=== PATIENT | female | born 1995 | race American Indian/Alaskan Native ===

== ENCOUNTER 2018-04-26 02:20 | Emergency (ER) | payer OTHER ==
[2018-04-26] MEDS ORDERED: PEPCID IV ONE (02:41)
[2018-04-26] MEDS ORDERED: SOLU-Medrol IV ONE (02:41)
--- NOTE | 2018-04-26 04:53 | Emergency Department Report ---
ED Allergic Reaction HPI - General Chief complaint: Allergic Reaction Stated complaint: ALLERGIC REACTION Time Seen by Provider: 04/26/18 02:41 Source: EMS Mode of arrival: Stretcher Limitations: No Limitations - History of Present Illness Initial Comments: Aneta is a 22 yo female who is currently 6 weeks . She has had symptoms of allergic reaction last several days. Recently this week she was evaluated at outside hospital [facility] for allergic reaction. She is currently taking prednisone. Her mother recalls allergies to cats as a child. She recently moved into a new home April 19. The previous owners of the home had several cats. Today she had facial swelling and shortness of breath and wheezing. She received Benadryl IV and epinephrine subcutaneous per EMS. Symptoms are rapidly improving. Patient does have eczema. She does not recall allergies to food or pads. She recently moved from [place] with her parents into this new home which was purchased by the family. This is patient's second secondary to see. First ended in miscarriage. MD Complaint: allergic reaction, hives, facial swelling -: Gradual Symptoms: rash, itching, facial swelling, lip swelling, difficulty breathing, hoarseness Severity: moderate Treatment Prior to Arrival: benadryl, epinephrine, bronchodilator Previous Allergy History: prior ED visit(s) - Related Data Previous Rx's Medication Instructions Recorded Last Taken Type EPINEPHrine [Epipen] 0.3 mg IJ ONCE PRN #1 auto.injct 04/26/18 Unknown Rx Famotidine 20 mg PO BID 4 Days #8 tablet 04/26/18 Unknown Rx Prednisone [predniSONE 10 mg 10 mg PO .TAPER #1 tab.ds.pk 04/26/18 Unknown Rx (6-Day Pack, 21 Tabs)] diphenhydrAMINE [Benadryl CAP] 25 mg PO Q6HR 4 Days #16 capsule 04/26/18 Unknown Rx Allergies Allergy/AdvReac Type Severity Reaction Status Date / Time No Known Allergies Allergy Unverified 04/26/18 02:28 ED Review of Systems ROS: Stated complaint: ALLERGIC REACTION Other details as noted in HPI Comment: All other systems reviewed and negative Constitutional: denies: fever, malaise Respiratory: shortness of breath, wheezing Cardiovascular: denies: chest pain ED Past Medical Hx - Past Medical History Previous Medical History?: No - Surgical History Past Surgical History?: No - Social History Smoking Status: Never Smoker Substance Use Type: None - Medications Home Medications: Home Medications Medication Instructions Recorded Confirmed Last Taken Type EPINEPHrine [Epipen] 0.3 mg IJ ONCE PRN #1 auto.injct 04/26/18 Unknown Rx Famotidine 20 mg PO BID 4 Days #8 tablet 04/26/18 Unknown Rx Prednisone [predniSONE 10 mg 10 mg PO .TAPER #1 tab.ds.pk 04/26/18 Unknown Rx (6-Day Pack, 21 Tabs)] diphenhydrAMINE [Benadryl CAP] 25 mg PO Q6HR 4 Days #16 capsule 04/26/18 Unknown Rx ED Physical Exam - General Limitations: No Limitations General appearance: alert, in no apparent distress - Head Head exam: Present: atraumatic, normocephalic, other (periorbital facial swelling and urticaria involving face) - Eye Eye exam: Present: normal appearance - ENT ENT exam: Present: mucous membranes moist - Neck Neck exam: Present: normal inspection, full ROM - Respiratory Respiratory exam: Present: normal lung sounds bilaterally. Absent: respiratory distress, wheezes - Cardiovascular Cardiovascular Exam: Present: regular rate, normal rhythm, normal heart sounds. Absent: systolic murmur, diastolic murmur, rubs, gallop - GI/Abdominal GI/Abdominal exam: Present: soft, normal bowel sounds. Absent: distended, tenderness, guarding, rebound - Extremities Exam Extremities exam: Present: normal inspection - Back Exam Back exam: Present: normal inspection - Neurological Exam Neurological exam: Present: alert, oriented X3 - Psychiatric Psychiatric exam: Present: normal affect, normal mood - Skin Skin exam: Present: warm, dry, intact, normal color. Absent: rash ED Course Vital Signs 04/26/18 04/26/18 04/26/18 02:28 02:30 02:45 Pulse Rate 106 H 106 H Respiratory 22 17 Rate Blood Pressure 129/72 O2 Sat by Pulse 98 99 97 Oximetry 04/26/18 04/26/18 04/26/18 03:01 03:15 03:31 Pulse Rate 113 H 108 H 105 H Respiratory 20 16 17 Rate Blood Pressure 112/57 112/57 108/62 O2 Sat by Pulse 97 96 100 Oximetry 04/26/18 04/26/18 04/26/18 03:45 04:00 04:15 Pulse Rate 105 H 103 H 101 H Respiratory 21 19 19 Rate Blood Pressure 108/62 102/53 102/53 O2 Sat by Pulse 98 97 97 Oximetry ED Medical Decision Making - Medical Decision Making Acute anaphylactic reaction possibly due to cat dander at new home. Symptoms resolved after epinephrine provided per EMS. I recommended cleaning the home before returning. Recommended allergy testing. Prescribed epinephrine pen. Prescribed famotidine Benadryl and prednisone taper Currently no abdominal pain or vaginal bleeding to indicate complication with first trimester Critical care attestation.: If time is entered above; I have spent that time in minutes in the direct care of this critically ill patient, excluding procedure time. ED Disposition Clinical Impression: Anaphylaxis, First trimester Disposition: - TO HOME OR SELFCARE Is pt being admited?: No Does the pt Need Aspirin: No Condition: Stable Instructions: Anaphylaxis (ED) Prescriptions: diphenhydrAMINE [Benadryl CAP] 25 mg PO Q6HR 4 Days #16 capsule EPINEPHrine [Epipen] 0.3 mg IJ ONCE PRN #1 auto.injct PRN Reason: severe allergic reaction Famotidine 20 mg PO BID 4 Days #8 tablet Prednisone [predniSONE 10 mg (6-Day Pack, 21 Tabs)] 10 mg PO .TAPER #1 tab.ds.pk Referrals: PRETTY OLIVARES MD [Referring] - 3-5 Days SAIDA BHAGAT MD [Referring] - 3-5 Days
[2018-04-26 05:58] VITALS: BP 117/77
== END 2018-04-26 05:30 | disposition home or self-care (01) ==
LOC: ED 02:20
DX: O9A.211 Injury, poisoning and certain other consequences of external causes complicating pregnancy, first trimester (principal); T78.40XA Allergy, unspecified, initial encounter; Z3A.01 Less than 8 weeks gestation of pregnancy
CPT/HCPCS: 93005; 93010; 96374; 96375; 99284; J2930